=== PATIENT | female | born 1995 | race Caucasian/White ===

== ENCOUNTER → 2019-01-15 | Outpatient (CLI) | payer BC ==
--- NOTE | 2019-01-15 11:33 | Diagnostic Imaging Report ---
PROCEDURE: US Gallbladder. TECHNIQUE: Multiple real-time grayscale images were obtained over the right upper quadrant in various projections. INDICATION: Epigastric pain. COMPARISON: There are no prior studies available for comparison. FINDINGS: There is no evidence for cholelithiasis or acute cholecystitis and the common bile duct is not dilated. The liver is homogeneous and not enlarged. Spectral color flow images of the portal vein shows that the vein is patent. The right kidney is unremarkable. The pancreatic tail and aorta were partially obscured by bowel gas. IMPRESSION: 1. There is no evidence for cholelithiasis or acute cholecystitis. 2. If clinical concern regarding an underlying abnormality of the gallbladder persists and further imaging is desired, then a nuclear medicine hepatobiliary scan would be recommended for further study. Dictated by: Dictated on workstation # [id number]
== END ==
LOC: RAD 08:02
PROVIDERS: ATTEND Nurse Practitioner Family
DX: R10.13 Epigastric pain (principal)
CPT/HCPCS: 76705

== ENCOUNTER → 2019-03-04 | Outpatient (CLI) | payer BC ==
[~2019-03-04] MED LIST: CATHETER FLUSH 10 ML SYR IV PRN
--- NOTE | 2019-03-04 12:59 | Diagnostic Imaging Report ---
INDICATION: Right upper quadrant pain. Patient was administered 5.3 mCi technetium 99m Choletec intravenously and imaging over the abdomen was performed. After 1 hour patient ingested one can of ensure and a gallbladder ejection fraction was calculated. There is homogeneous uptake of activity by the liver with excretion of activity into the gallbladder and common duct. There is normal passage of activity into the small bowel. Gallbladder ejection fraction is slightly low at 28%. Normal values are 33% or greater. IMPRESSION: 1. Patent cystic duct and common bile duct. 2. Slightly low gallbladder ejection fraction of 28%. Dictated by: Dictated on workstation # [id number]
== END ==
LOC: CARD 09:48
PROVIDERS: ATTEND Surgery
DX: R10.11 Right upper quadrant pain (principal); R11.0 Nausea
CPT/HCPCS: 78227

== ENCOUNTER → 2019-03-23 | Outpatient (CLI) | payer BC ==
[2019-03-23 13:59] LABS: ALANINE AMINOTRANSFERASE 99 U/L (0-55); ALBUMIN 3.7 GM/DL (3.2-4.5); ALKALINE PHOSPHATASE 92 U/L (40-136); BILIRUBIN,TOTAL 0.4 MG/DL (0.1-1.0); BUN/CREATININE RATIO 9; CALCIUM 9.7 MG/DL (8.5-10.1); CARBON DIOXIDE 23 MMOL/L (21-32); CHLORIDE 102 MMOL/L (98-107); CREATININE SERUM 0.77 MG/DL (0.60-1.30); GFR ESTIMATED > 60; GLUCOSE 110 MG/DL (70-105); LIPASE 17 U/L (8-78); POTASSIUM 3.8 MMOL/L (3.6-5.0); SODIUM 137 MMOL/L (135-145); TOTAL PROTEIN 7.6 GM/DL (6.4-8.2)
[2019-03-23 14:00] LABS: BASOPHILS % (AUTO) 1 % (0-10); EOSINOPHILS % (AUTO) 3 % (0-10); HEMATOCRIT 42 % (35-52); HEMOGLOBIN 13.5 G/DL (11.5-16.0); LYMPHOCYTES # (AUTO) 1.7 X 10^3 (1.0-4.0); LYMPHOCYTES % (AUTO) 39 % (12-44); MEAN CORPUSCULAR HEMOGLOBIN 29 PG (25-34); MEAN CORPUSCULAR HGB CONC 32 G/DL (32-36); MEAN CORPUSCULAR VOLUME 89 FL (80-99); MEAN PLATELET VOLUME 11.1 FL (7.4-10.4); MONOCYTES # (AUTO) 0.2 X 10^3 (0.0-1.0); MONOCYTES % (AUTO) 5 % (0-12); NEUTROPHILS # (AUTO) 2.3 X 10^3 (1.8-7.8); NEUTROPHILS % (AUTO) 52 % (42-75); PLATELET COUNT 128 10^3/uL (130-400); RED CELL DISTRIBUTION WIDTH 14.1 % (10.0-14.5); WHITE BLOOD COUNT 4.3 10^3/uL (4.3-11.0)
[2019-03-23 14:01] LABS: ATYPICAL LYMPHOCYTES 16 %; BAND NEUTROPHILS 14 %; EOSINOPHILS # (AUTO) 0.1 10^3/uL (0.0-0.3); EOSINOPHILS % (MANUAL) 2 %; LYMPHOCYTES % (MANUAL) 25 %; MONOCYTES % (MANUAL) 6 %; NEUTROPHILS % (MANUAL) 37 %; RBC MORPH NORMAL
== END ==
LOC: LAB FS 12:10
PROVIDERS: ATTEND Family Medicine
DX: R10.13 Epigastric pain (principal)
CPT/HCPCS: 36415; 80053; 83690; 85007; 85027

== ENCOUNTER → 2020-03-07 | Outpatient (CLI) | payer BC | LOC: LAB FS 15:35 | PROVIDERS: ATTEND Family Medicine | DX: N92.5 Other specified irregular menstruation (principal) | CPT/HCPCS: 36415; 84702; 84703 ==

== ENCOUNTER → 2020-04-07 | Outpatient (CLI) | payer BC ==
[2020-04-07 13:35] LABS: WHITE BLOOD COUNT 6.8 10^3/uL (4.3-11.0)
== END ==
LOC: LAB FS 12:48
PROVIDERS: ATTEND Family Medicine
DX: O09.91 Supervision of high risk pregnancy, unspecified, first trimester (principal); Z3A.00 Weeks of gestation of pregnancy not specified
CPT/HCPCS: 36415; 85027; 86703; 86762; 86780; 86850; 86900; 86901; 87088; 87340

== ENCOUNTER → 2020-05-08 | Outpatient (CLI) | payer BC | LOC: LAB FS 15:31 | PROVIDERS: ATTEND Family Medicine | DX: Z34.92 Encounter for supervision of normal pregnancy, unspecified, second trimester (principal) | CPT/HCPCS: 36415; 82105; 82677; 84702; 86336 ==

== ENCOUNTER → 2020-06-19 | Outpatient (CLI) | payer BC ==
--- NOTE | 2020-06-19 09:14 | Diagnostic Imaging Report ---
INDICATION: survey TECHNIQUE: Multiple real-time grayscale images were obtained over the gravid uterus. COMPARISON: None FINDINGS: Amniotic fluid index is normal at 17 cm. Fetus is in breech presentation without evidence of placenta previa. cardiac activity is present with a rate 149 bpm. No anomaly is identified on anatomic survey. Cervical length is 4.1 cm. Patient body habitus limits evaluation of mediastinum and facial features of the fetus. Biometrical measurements are as follows: Biparietal 5.03 cm, age 21 weeks 2 days. Head circumference 19.02 cm, age 21 weeks 3 days. Abdominal circumference 15.90 cm, age 21 weeks 1 days. Femur length 3.68 cm, age 21 weeks 5 days. Sonographic estimate age: 21 weeks 3 days. Sonographic estimated date of delivery: 10/27/2020. Estimated Weight: 416 gm (+/- 61 gm). LMP percentile: 55%. heart rate: 149 beats per minute. number: 1 of 1. IMPRESSION: Unremarkable obstetrical ultrasound although mediastinal and facial features are somewhat obscured. Estimated gestational age by biometry is 21 weeks and 3 days with sonographic EDC of 10/27/2020. Dictated by: Dictated on workstation # [id number]
== END ==
LOC: RAD FS 08:07
PROVIDERS: ATTEND Family Medicine
DX: O09.92 Supervision of high risk pregnancy, unspecified, second trimester (principal); Z3A.21 21 weeks gestation of pregnancy
CPT/HCPCS: 76805

== ENCOUNTER → 2020-08-09 | Outpatient (CLI) | payer BC ==
[2020-08-09 16:35] LABS: ALANINE AMINOTRANSFERASE 19 U/L (0-55); ALBUMIN 3.4 GM/DL (3.2-4.5); ALKALINE PHOSPHATASE 89 U/L (40-136); BILIRUBIN,TOTAL 0.3 MG/DL (0.1-1.0); BUN/CREATININE RATIO 12; CALCIUM 8.8 MG/DL (8.5-10.1); CARBON DIOXIDE 20 MMOL/L (21-32); CHLORIDE 105 MMOL/L (98-107); CREATININE SERUM 0.65 MG/DL (0.60-1.30); GFR ESTIMATED > 60; GLUCOSE 126 MG/DL (70-105); POTASSIUM 3.7 MMOL/L (3.6-5.0); SODIUM 139 MMOL/L (135-145); TOTAL PROTEIN 6.3 GM/DL (6.4-8.2)
[2020-08-09 16:50] LABS: HEMATOCRIT 34 % (35-52); HEMOGLOBIN 11.1 G/DL (11.5-16.0); MEAN CORPUSCULAR HEMOGLOBIN 30 PG (25-34); MEAN CORPUSCULAR HGB CONC 33 G/DL (32-36); MEAN CORPUSCULAR VOLUME 93 FL (80-99); MEAN PLATELET VOLUME 10.7 FL (7.4-10.4); NEUTROPHILS % (AUTO) 76 % (42-75); PLATELET COUNT 155 10^3/uL (130-400); WHITE BLOOD COUNT 7.8 10^3/uL (4.3-11.0)
[2020-08-09 16:51] LABS: BAND NEUTROPHILS 4 %; BASOPHILS % (AUTO) 0 % (0-10); EOSINOPHILS % (AUTO) 1 % (0-10); LYMPHOCYTES # (AUTO) 1.5 X 10^3 (1.0-4.0); LYMPHOCYTES % (AUTO) 19 % (12-44); LYMPHOCYTES % (MANUAL) 16 %; MONOCYTES # (AUTO) 0.3 X 10^3 (0.0-1.0); MONOCYTES % (AUTO) 4 % (0-12); MONOCYTES % (MANUAL) 4 %; NEUTROPHILS # (AUTO) 5.9 X 10^3 (1.8-7.8); NEUTROPHILS % (MANUAL) 75 %
[2020-08-09 16:52] LABS: BASOPHILS % (MANUAL) 0 %; EOSINOPHILS % (MANUAL) 1 %
== END ==
LOC: LAB FS 15:39
PROVIDERS: ATTEND Family Medicine
DX: O16.2 Unspecified maternal hypertension, second trimester (principal); Z3A.00 Weeks of gestation of pregnancy not specified
CPT/HCPCS: 36415; 80053; 82570; 82950; 84156; 85007; 85027; 86780

== ENCOUNTER → 2020-08-14 | Outpatient (CLI) | payer BC ==
--- NOTE | 2020-08-14 16:46 | Diagnostic Imaging Report ---
INDICATION: patient with hypertension. TECHNIQUE: Multiple real-time grayscale images were obtained over the gravid uterus. COMPARISON: Prior study of 06/19/2020. FINDINGS: A single live intrauterine fetus is seen measuring 30 weeks 6 days in size with sonographic EDC of 10/17/2020. There is actually about a rgdm-vlf-l-half larger than expected from original dates, but within variation of late . Fetus is in breech presentation at this time. Amniotic fluid index is 21.83 cm. Placenta is posterior with no evidence of previa. Normal cardiac activity is seen on cine clips. Four-chamber heart view appears unremarkable. Maternal adnexa were nonvisualized. Biometrical measurements are as follows: Biparietal 7.75 cm, age 31 weeks 1 days. Head circumference 28.43 cm, age 31 weeks 2 days. Abdominal circumference 25.86 cm, age 30 weeks 1 days. Femur length 5.89 cm, age 30 weeks 6 days. Sonographic estimate age: 30 weeks 6 days. Sonographic estimated date of delivery: 10/17/2020. Estimated Weight: 1575 gm (+/- 230 gm). LMP percentile: 83%. heart rate: NA beats per minute. number: 1 of 1. IMPRESSION: Single live intrauterine fetus measuring 30 weeks 6 days in size as above, this is about 10 days larger than expected from original dates but within variation of late . There was no detectable abnormality. Note that the fetus is in breech presentation at this time. Dictated by: Dictated on workstation # [id number]
== END ==
LOC: RAD FS 15:24
PROVIDERS: ATTEND Family Medicine
DX: O13.3 Gestational [pregnancy-induced] hypertension without significant proteinuria, third trimester (principal); Z3A.30 30 weeks gestation of pregnancy
CPT/HCPCS: 76805

== ENCOUNTER → 2020-09-21 | Outpatient (CLI) | payer BC ==
--- NOTE | 2020-09-21 11:46 | Diagnostic Imaging Report ---
INDICATION: High risk , followup TECHNIQUE: Multiple real-time grayscale images were obtained over the gravid uterus. COMPARISON: 08/14/2020, 06/19/2020 FINDINGS: Single viable in cephalic presentation. Placenta posterior without previa. Normal amount of amniotic fluid, index at 12.36 cm. anatomic assessment not performed. Maternal adnexa not visualized. Biometrical measurements are as follows: Biparietal 8.97 cm, age 36 weeks 3 days. Head circumference 33.37 cm, age 38 weeks 1 days. Abdominal circumference 31.36 cm, age 35 weeks 3 days. Femur length 7.22 cm, age 37 weeks 0 days. Sonographic estimate age: 36 weeks 3 days. Sonographic estimated date of delivery: 10/13/2020. Estimated Weight: 2862 gm (+/- 418 gm). LMP percentile: 87%. heart rate: 143 beats per minute. number: 1 of 1. IMPRESSION: 1. Single viable intrauterine in the cephalic presentation. Sonographic estimated age 36 weeks 6 days for estimated date of delivery 10/13/2020. This is advanced approximately 2 weeks from initial dating. Estimated weight at the 87th percentile. Dictated by: Dictated on workstation # [id number]
== END ==
LOC: RAD FS 10:39
PROVIDERS: ATTEND Family Medicine
DX: O09.93 Supervision of high risk pregnancy, unspecified, third trimester (principal); Z3A.36 36 weeks gestation of pregnancy
CPT/HCPCS: 76805

== ENCOUNTER 2020-10-26 18:57 | Inpatient (IN) | payer BC ==
[~2020-10-26] VITALS: Ht 162.6 cm; Wt 141.2 kg
[2020-10-26 19:26] VITALS: BP 138/65
[2020-10-26] MEDS ORDERED: NS IV 1000 ML 1,000 ML ONE (19:55)
[2020-10-26 20:00] VITALS: BP 138/65
[2020-10-26 20:30] LABS: BASOPHILS % (AUTO) 0 % (0-10); EOSINOPHILS % (AUTO) 1 % (0-10); HEMATOCRIT 33 % (35-52); HEMOGLOBIN 10.6 g/dL (11.5-16.0); LYMPHOCYTES # (AUTO) 1.4 10^3/uL (1.0-4.0); LYMPHOCYTES % (AUTO) 18 % (12-44); MEAN CORPUSCULAR HEMOGLOBIN 28 pg (25-34); MEAN CORPUSCULAR HGB CONC 32 g/dL (32-36); MEAN CORPUSCULAR VOLUME 88 fL (80-99); MEAN PLATELET VOLUME 11.4 fL (9.0-12.2); MONOCYTES # (AUTO) 0.4 10^3/uL (0.0-1.0); MONOCYTES % (AUTO) 5 % (0-12); NEUTROPHILS # (AUTO) 5.6 10^3/uL (1.8-7.8); NEUTROPHILS % (AUTO) 76 % (42-75); PLATELET COUNT 165 10^3/uL (130-400); WHITE BLOOD COUNT 7.5 10^3/uL (4.3-11.0)
[2020-10-26 20:34] LABS: BILIRUBIN,URINE NEGATIVE (NEGATIVE); CLARITY,URINE CLEAR; COLOR,URINE YELLOW; GLUCOSE, URINE (UA) NEGATIVE (NEGATIVE); KETONES,URINE NEGATIVE (NEGATIVE); LEUKOCYTE ESTERASE ,URINE NEGATIVE (NEGATIVE); NITRITE,URINE NEGATIVE (NEGATIVE); PROTEIN,URINE NEGATIVE (NEGATIVE)
[2020-10-26 20:52] LABS: AMORPHOUS SEDIMENT,UR FEW AMOR URATES /LPF; BACTERIA,URINE FEW /HPF
[2020-10-26] MEDS ORDERED: CLINDAMYCIN 900 MG/50 ML IVPB 50 ML IV ONE (21:21)
[2020-10-26] MEDS: D5 LR IV SOLUTION 1,000 ML IV SCH (21:29)
[2020-10-26] MEDS: CLINDAMYCIN 900 MG/50 ML IVPB 50 ML IV SCH (21:30)
[2020-10-26] MEDS ORDERED: LABE100T6 PO (21:56)
[2020-10-26] MEDS ORDERED: PANT40TA2 PO (21:56)
[2020-10-26] MEDS ORDERED: PREN-102 PO (21:57)
[2020-10-26 22:00] VITALS: BP 135/79
[2020-10-26] MEDS ORDERED: CATHETER FLUSH 10 ML SYR IV SCH (22:00)
[2020-10-26 23:00] VITALS: BP 145/85
[2020-10-27] VITALS (35 sets, daily range): BP systolic 103–175; BP diastolic 49–101
[2020-10-27] MEDS ORDERED: LABETALOL HCL 20 MG/4 ML VIAL ONE (03:39)
[2020-10-27] MEDS ORDERED: LABETALOL 200 MG (NORMODYNE) TAB PO ONE (03:43)
[2020-10-27] MEDS ORDERED: NS IV 1000 ML 1,000 ML IV ONE (03:45)
[2020-10-27] MEDS ORDERED: LABETALOL HCL 20 MG/4 ML VIAL IV ONE (03:45)
[2020-10-27] MEDS: LABETALOL 200 MG (NORMODYNE) TAB PO SCH ×3 (03:50→22:54)
[2020-10-27] MEDS: CLINDAMYCIN 900 MG/50 ML IVPB 50 ML IV SCH (05:40)
[2020-10-27] MEDS: D5 LR IV SOLUTION 1,000 ML IV SCH (06:04)
[2020-10-27] MEDS ORDERED: fentaNYL 2 mcg/ml BUPIVA 0.125 100 ML ONE (08:15)
[2020-10-27] MEDS ORDERED: BUPIVACAINE 0.25% 30 ML (SENSORCAINE) VIAL ONE (08:52)
[2020-10-27] MEDS ORDERED: LIDOCAINE PF 2% 5 ML (XYLOCAINE) VIAL ONE (08:52)
[2020-10-27] MEDS ORDERED: fentaNYL INJ 100 MCG/2 ML AMP ONE (08:52)
[2020-10-27] MEDS ORDERED: NALOXONE 0.4 MG/ML 1 ML (NARCAN) VIAL IV PRN (09:00)
[2020-10-27] MEDS ORDERED: LACTATED RINGERS 1,000 ML IV ONE (09:00)
[2020-10-27] MEDS ORDERED: fentaNYL 2 mcg/ml BUPIVA 0.125 100 ML IV SCH (09:00)
[2020-10-27] MEDS ORDERED: CATHETER FLUSH 10 ML SYR IV PRN (09:00)
--- NOTE | 2020-10-27 09:04 | History & Physical-OB ---
OB - Chief Complaint & HPI Date/Time Date of Admission: Date of Admission: Oct 26, 2020 at 6:57 pm Date seen by a Provider: Oct 27, 2020 Time Seen by a Provider: 08:58 Chief Complaint/History OB-Reason for Admission/Chief: Induction of Labor Hx : 2 Hx Para: 1 Expected Date of Delivery: Oct 29, 2020 Gestational Age in Weeks: 39 Gestational Age in Days: 4 Indication for induction: other (GHTN, 39 weeks) Admission Nurse Assessment Rev: Yes Allergies and Home Medications Allergies Coded Allergies: Penicillins (Verified Allergy, Severe, 10/26/20) azithromycin (Verified Allergy, Severe, 10/26/20) Home Medications Labetalol HCl 100 Mg Tablet, 100 MG PO BID, (Reported) Last Action: New Order Pantoprazole Sodium 40 Mg Tablet.dr, 40 MG PO DAILY, (Reported) Last Action: New Order Vits #93/Iron Fum/FA 1 Each Tablet, 1 EACH PO DAILY, (Reported) Last Action: New Order Patient Home Medication List Home Medication List Reviewed: Yes OB - History Hx of Present Care: Yes Ultrasounds: Normal mid trimester US Obstetrical Complications: Gestational Hypertension Medical Complications: None Patient Past Medical History BMI 53 OB - Admission Exam Physical Exam Vitals: Vital Signs 10/26/20 10/27/20 10/27/20 10/27/20 19:26 03:00 06:00 07:00 Temp 36.5 Pulse 90 Resp 18 B/P (MAP) 135/80 (98) Pulse Ox 97 O2 Delivery Room Air HEENT: NCAT Heart: Rhythm Normal Lungs: Clear Abdomen: Gravid Extremities: Normal Reflexes: Normal Cervical Dilatation: 1cm Effacement: 75% Station: -1 Membranes: Intact Heart Rate: 130's Accelerations: Accelerations Present Decelerations: No Decelerations Short Term Variability: Present Manager Athletics Variability: Average (6-25) Intensity: Mild [place] Scoring Tool (Modified) Dilation (cm): 1-2cm (1) Effacement (%): 51-79% (2) Descent/Station: -1,0 (2) Cervix Consistency: Soft (2) Cervix Position: Anterior (2) Midd[place] Score: 8 Labs Laboratory Tests Test 10/26/20 19:10 10/26/20 20:20 Range/Units Urine Color YELLOW Urine Clarity CLEAR Urine pH 6.0 5-9 Urine Specific [place] 1.010 L 1.016-1.022 Urine Protein NEGATIVE NEGATIVE Urine Glucose (UA) NEGATIVE NEGATIVE Urine Ketones NEGATIVE NEGATIVE Urine Nitrite NEGATIVE NEGATIVE Urine Bilirubin NEGATIVE NEGATIVE Urine Urobilinogen 1.0 < = 1.0 MG/DL Urine Leukocyte Esterase NEGATIVE NEGATIVE Urine RBC (Auto) NEGATIVE NEGATIVE Urine RBC NONE /HPF Urine WBC 2-5 /HPF Urine Crystals PRESENT H /LPF Urine Amorphous Sediment FEW CONNIE URATES H /LPF Urine Bacteria FEW H /HPF Urine Casts NONE /LPF Urine Mucus NEGATIVE /LPF Urine Culture Indicated YES White Blood Count 7.5 4.3-11.0 10^3/uL Red Blood Count 3.74 L 3.80-5.11 10^6/uL Hemoglobin 10.6 L 11.5-16.0 g/dL Hematocrit 33 L 35-52 % Mean Corpuscular Volume 88 80-99 fL Mean Corpuscular Hemoglobin 28 25-34 pg Mean Corpuscular Hemoglobin Concent 32 32-36 g/dL Red Cell Distribution Width 14.6 H 10.0-14.5 % Platelet Count 165 130-400 10^3/uL Mean Platelet Volume 11.4 9.0-12.2 fL Immature Granulocyte % (Auto) 1 % Neutrophils (%) (Auto) 76 H 42-75 % Lymphocytes (%) (Auto) 18 12-44 % Monocytes (%) (Auto) 5 0-12 % Eosinophils (%) (Auto) 1 0-10 % Basophils (%) (Auto) 0 0-10 % Neutrophils # (Auto) 5.6 1.8-7.8 10^3/uL Lymphocytes # (Auto) 1.4 1.0-4.0 10^3/uL Monocytes # (Auto) 0.4 0.0-1.0 10^3/uL Eosinophils # (Auto) 0.0 0.0-0.3 10^3/uL Basophils # (Auto) 0.0 0.0-0.1 10^3/uL Immature Granulocyte # (Auto) 0.0 0.0-0.1 10^3/uL OB - Assessment/Plan/Diagnosis Assessment Assessment: induction of labor Admission Dx 25 yo @ 39.5 Induction of labor GHTN GBS unknown Admission Status: Inpatient Order (span 2 midnights) Reason for Inpatient Admission: Induction of labor at 39 weeks Plan Induction Method: per Misoprostol Protocol Other Plan Clindamycin started overnight due to PCN allergy. Will AROM and start pitocin in AM. NHUNG GRAY DO Oct 27, 2020 9:04 am
[2020-10-27] MEDS ORDERED: TERBUTALINE INJ 1 MG/ML (BRETHINE) AMP ONE (10:14)
[2020-10-27] MEDS ORDERED: TERBUTALINE INJ 1 MG/ML (BRETHINE) AMP SC ONE (10:16)
[2020-10-27] MEDS ORDERED: LIDOCAINE/EPI 2% 1:200,00 (XYLOCAINE) 20 ML VIAL ONE (10:23)
[2020-10-27] MEDS ORDERED: OXYTOCIN PRE-MIX DRIP 500 ML IV ONE (10:28)
[2020-10-27] MEDS ORDERED: LIDOCAINE/EPI 2% 1:200,00 (XYLOCAINE) 10 ML VIAL INJ ONE (10:30)
[2020-10-27] MEDS: OXYTOCIN PRE-MIX DRIP 500 ML IV SCH ×2 (10:41→11:14)
--- NOTE | 2020-10-27 10:56 | OB Labor & Delivery Record ---
L&D History Date of Service Date of Service: Oct 27, 2020 History Expected Date of Delivery: Oct 29, 2020 Gestational Age in Weeks: 39 Hx : 2 Hx Para: 1 Complications Events: Induced HTN Operative Indications (Cesarea: N/A-Vaginal Delivery Intrapartal Events: None L&D Stage1 Stage One Onset of Labor - Date: Oct 27, 2020 Monitors and Tracing Monitor Mode: External Heart Rate: 130 Monitor Accelerations: Uniform Monitor Decelerations: Variable Longterm Variability: Average (6-10) Short Term Variability: Present Presentation: Vertex Vital Signs VS - Last 72 Hours, by Label 10/26/20 10/26/20 10/26/20 10/26/20 19:26 20:00 21:00 22:00 Temp 36.7 36.7 Pulse 106 106 76 Resp 18 18 18 18 B/P (MAP) 138/65 (89) 135/79 (97) Pulse Ox 97 O2 Delivery Room Air Room Air Room Air Room Air 10/26/20 10/27/20 10/27/20 10/27/20 23:00 00:00 01:00 02:00 Temp 35.8 Pulse 83 71 89 82 Resp 18 18 18 18 B/P (MAP) 145/85 (105) 130/78 (95) 142/75 (97) 158/82 (107) O2 Delivery Room Air Room Air Room Air Room Air 10/27/20 10/27/20 10/27/20 10/27/20 03:00 03:10 03:20 04:00 Temp 36.5 Pulse 76 83 78 88 Resp 18 18 18 18 B/P (MAP) 165/91 (115) 175/101 (125) 173/99 (123) 142/99 (113) O2 Delivery Room Air Room Air 10/27/20 10/27/20 10/27/20 05:00 06:00 07:00 Pulse 75 90 Resp 18 18 18 B/P (MAP) 146/67 (93) 135/80 (98) O2 Delivery Room Air Room Air Room Air Signs of Distress by FHT Signs of Distress recurrent heart variable decelerations to the 70s, with abrupt return to baseline, after epidural placed until complete. Rupture of Membranes Spontaneous Ruture of Membrane: Yes Amniotic Membrane Fluid Desc.: Clear Progress/Notes Patient admitted last night for IOL. She was given misoprostol overnight for cervical ripening, this AM SROM occurred, FSE placed when I arrived she was 4 cm. She received an epidural and progressed rapidly to complete and + 1 L&D Stage2 Stage Two Stage II Date: Oct 27, 2020 Monitors and Tracing Monitor Mode: Internal Heart Rate: 130 Monitor Accelerations: None Monitor Decelerations: Variable Longterm Variability: Average (6-10) Short Term Variability: Present Position: Right Occiput Anterior Presentation: Vertex Signs of Distress by FHT Signs of Distress Due to distress with recurrent decels into the 50s, delivery was expedited using low vacuum extraction. She was encouraged to push, and once station approached +2, kiwi suction placed on midsagital suture line on flexion point. Suction appled to 40mmHg using hand piece. With gentle extension of the head, the head was delivered and nuchal cord reduced x 1. Vacuum released, remainder of the delivered without difficulty. Cord Descript/Complications Cord Vessel Description: 3 Vessels Complications cord pH drawn Delivery Type Delivery Method: Low Vacuum Extraction Anterior Shoulder: Right Episiotomy/Perineal Laceration Laceraction(s)/Extensions: Yes Episiotomy Description: Perineal Extension/lac, Vaginal Extension/lac, 2nd degree Degree (describe repair) 2nd degree vaginal/perineal laceration repaired using 3-0 vicryl in usual fashion. Condition of Delivery 1 minute Comment: 7 5 minute Comment: 9 Notes Live male weight pending Condition of Infant Condition of Infant: Living Exam: No Observed Abnormalities Resuscitation Resuscitation: N/A - Spontaneous Resp L&D Stage3 Stage Three Stage III Date: Oct 27, 2020 Pictocin Pitocin Administration Comment: 30 mu wide open after delivery of placenta Placenta Delivery Placenta Delivery: Spontaneous Delivery Summary Summary Estimated blood loss (mL): 300 Attending at delivery: Nhung Gray DO Condition of Delivery Examined: Cervix Examined, Uterus Explored Post Hemorrhage: No Condition of Mother stable Condition of Infant (s) stable NHUNG GRAY DO Oct 27, 2020 10:56
[2020-10-27] MEDS ORDERED: MEASLES,MUMPS,RUBELLA 1 EA INJ SQ ONE (11:00)
[2020-10-27] MEDS ORDERED: WITCH HAZEL(TUCKS) 40 EA JAR TOP PRN (11:00)
[2020-10-27] MEDS ORDERED: HYDROcodone/APAP 5 MG/325 MG (LORTAB) TAB PO PRN (11:00)
[2020-10-27] MEDS ORDERED: TETANUS,DIPTH,PERTUSS P/F (BOOSTRIX) 0.5 ML VIAL IM ONE (11:00)
[2020-10-27] MEDS ORDERED: BENZOCAINE/MENTHOL (DERMOPLAST) 56 ML CAN TP PRN (11:00)
[2020-10-27] MEDS ORDERED: DIBUCAINE 1% OINTMENT 30 GM TUBE TOP PRN (11:00)
[2020-10-27] MEDS: IBUPROFEN 600 MG (MOTRIN) TAB PO SCH ×2 (13:31→21:30)
[2020-10-27] MEDS ORDERED: CATHETER FLUSH 10 ML SYR IV SCH (14:00)
[2020-10-27] MEDS: DOCUSATE SODIUM 100 MG (COLACE) CAP PO SCH (21:30)
[2020-10-28] MEDS: IBUPROFEN 600 MG (MOTRIN) TAB PO SCH ×5 (03:28→14:44)
[2020-10-28 03:29] VITALS: BP 100/51
[2020-10-28 06:14] LABS: HEMOGLOBIN 9.6 g/dL (11.5-16.0)
[2020-10-28 06:16] LABS: BASOPHILS % (AUTO) 0 % (0-10); EOSINOPHILS # (AUTO) 0.1 10^3/uL (0.0-0.3); EOSINOPHILS % (AUTO) 1 % (0-10); HEMATOCRIT 30 % (35-52); LYMPHOCYTES # (AUTO) 1.6 10^3/uL (1.0-4.0); LYMPHOCYTES % (AUTO) 20 % (12-44); MEAN CORPUSCULAR HEMOGLOBIN 28 pg (25-34); MEAN CORPUSCULAR HGB CONC 32 g/dL (32-36); MEAN CORPUSCULAR VOLUME 89 fL (80-99); MONOCYTES # (AUTO) 0.5 10^3/uL (0.0-1.0); MONOCYTES % (AUTO) 6 % (0-12); NEUTROPHILS % (AUTO) 73 % (42-75); PLATELET COUNT 129 10^3/uL (130-400); WHITE BLOOD COUNT 8.2 10^3/uL (4.3-11.0)
[2020-10-28] MEDS ORDERED: PRENATAL VITAMIN 1 EA TAB PO SCH (07:00)
--- NOTE | 2020-10-28 08:59 | Postpartum Progress Note ---
Note Note Day # 1 Subjective: Patient is without complaints. Ambulating, voiding. Tolerating a regular diet without nausea or vomiting. Normal lochia. Pain is well controlled with oral pain medications. Objective: Physical Exam: General - Alert and oriented, no apparent distress Abdomen - Soft, appropriately tender to palpation, non-distended, fundus firm at umbilicus Extremities - no edema, negative Ck's bilaterally Assessment: PPD 1 VAVD Acute blood loss anemia Plan: Routine care. Encourage breast feeding. Encourage ambulation. Ferrous sulfate supplementation. Plan for discharge today Vitals - Labs Vital Signs - I&O Vital Signs Date Time Temp Pulse Resp B/P (MAP) Pulse Ox O2 Delivery O2 Flow Rate FiO2 10/28/20 03:29 37.0 78 18 100/51 (67) 98 Room Air 10/27/20 21:32 36.8 86 18 107/58 (74) 97 Room Air 10/27/20 17:30 36.8 79 18 105/61 (76) Room Air 10/27/20 12:46 36.7 88 16 103/49 (67) 98 Room Air 10/27/20 12:16 81 108/55 (72) Room Air 10/27/20 11:57 73 119/69 (86) Room Air 10/27/20 11:33 77 116/55 (75) Room Air 10/27/20 11:00 92 119/56 (77) Room Air 10/27/20 10:45 37.0 93 109/53 (71) Room Air 10/27/20 10:37 94 108/51 (70) Room Air 10/27/20 10:20 89 111/57 (75) 100 Room Air 10/27/20 10:15 81 116/58 (77) 100 Room Air 10/27/20 10:10 77 108/56 (73) 100 Room Air 10/27/20 10:04 82 111/55 (73) 100 Room Air 10/27/20 10:00 89 107/54 (71) 100 Room Air 10/27/20 09:57 76 110/55 (73) 100 Room Air 10/27/20 09:53 97 122/58 (79) 100 Room Air 10/27/20 09:49 86 115/58 (77) 100 Room Air 10/27/20 09:45 90 124/69 (87) 100 Room Air 10/27/20 09:43 85 122/64 (83) 100 Room Air 10/27/20 09:40 92 110/55 (73) Room Air 10/27/20 09:38 93 103/53 (70) 98 Room Air 10/27/20 09:35 99 125/60 (81) 98 Room Air 10/27/20 09:30 92 119/64 (82) 100 Room Air 10/27/20 09:20 37.0 98 147/81 (103) Room Air I & O 10/28/20 07:00 Intake Total 2600 ml Balance 2600 ml Labs Laboratory Tests 10/28/20 05:36: White Blood Count 8.2, Red Blood Count 3.41L, Hemoglobin 9.6L, Hematocrit 30L, Mean Corpuscular Volume 89, Mean Corpuscular Hemoglobin 28, Mean Corpuscular H emoglobin Concent 32, Red Cell Distribution Width 14.6H, Platelet Count 129L, Mean Platelet Volume 12.0, Immature Granulocyte % (Auto) 1, Neutrophils (%) (Auto) 73, Lymphocytes (%) (Auto) 20, Monocytes (%) (Auto) 6, Eosinophils (%) (Auto) 1, Basophils (%) (Auto) 0, Neutrophils # (Auto) 6.0, Lymphocytes # (Auto) 1.6, Monocytes # (Auto) 0.5, Eosinophils # (Auto) 0.1, Basophils # (Auto) 0.0, Immature Granulocyte # (Auto) 0.1, Percent Immature Platelet Fraction 8.1H Microbiology 10/26/20 Urine Culture - Final, Complete NO GROWTH NHUNG GRAY DO Oct 28, 2020 08:59
[2020-10-28 09:00] VITALS: BP 134/77
[2020-10-28] MEDS ORDERED: FERROUS SULF 325 MG (IRON) TAB PO SCH (09:00)
[2020-10-28] MEDS: LABETALOL 200 MG (NORMODYNE) TAB PO SCH (09:10)
[2020-10-28] MEDS: DOCUSATE SODIUM 100 MG (COLACE) CAP PO SCH (09:10)
[2020-10-28] MEDS ORDERED: IBUP-844 PO (09:12)
[2020-10-28] MEDS ORDERED: BENZ78AE5 TP (09:12)
[2020-10-28] MEDS ORDERED: ACHD5005 PO (09:12)
[2020-10-28] MEDS ORDERED: DIBU30OI TOP (09:12)
[2020-10-28] MEDS ORDERED: DCS100C PO (09:12)
[2020-10-28] MEDS ORDERED: FERR325T24 PO (09:12)
--- NOTE | 2020-10-28 09:16 | Discharge Inst-Women's Service ---
Discharge Inst-Women's Serv Depart Medication/Instructions New, Converted or Re-Newed RX: RX on Chart Final Diagnosis PPD 1 NVD Problems Reviewed?: Yes Consults/Follow Up Additional Follow Up: Yes Orders/Referrals Dr. Gray or Dr. Urbina in 6 weeks Activity Activity: Activity as Tolerated Driving Instructions: No Driving for 1 Week NO SMOKING: NO SMOKING Nothing Inside Vagina: No Douching, No [place], No Tampons Diet Discharge Diet: No Restrictions Symptoms to Report to : Bleeding Excessive, Pain Increased, Fever Over 101 Degrees F, Vaginal Bleeding Increase, Questions/Concerns For Any Problems or Questions: Contact Your Physician NHUNG GRAY DO Oct 28, 2020 09:16
[2020-10-28] MEDS ORDERED: MEASLES,MUMPS,RUBELLA 1 EA INJ ONE (14:10)
[2020-10-28 14:30] VITALS: BP 133/66
--- NOTE | 2020-10-28 15:00 | Anesthesia-Regional Post-Op ---
Regional Patient Condition Mental Status: Alert, Oriented x3 Circulation: Same as Pre-Op Headache: Absent Sensation: Full Recovery Motor Block: Absent Post Op Complications Complications None Follow Up Care/Instructions Patient Instructions None needed. Anesthesia/Patient Condition Patient is doing well, no complaints, stable vital signs, no apparent adverse anesthesia problems. No complications reported per nursing. DAVION BAKER CRNA Oct 28, 2020 15:00
[2020-10-28 18:00] VITALS: BP 133/66
== END 2020-10-28 18:00 | disposition home or self-care (01) | DRG 806 ==
LOC: LDRP 18:57
PROVIDERS: ADMIT Obstetrics & Gynecology; ATTEND Obstetrics & Gynecology
PROC: 10E0XZZ Delivery of Products of Conception, External Approach (ICD-10-PCS; principal; 2020-10-27)
PROC: 0KQM0ZZ Repair Perineum Muscle, Open Approach (ICD-10-PCS; 2020-10-27)
DX: O13.4 Gestational [pregnancy-induced] hypertension without significant proteinuria, complicating childbirth (principal); D62 Acute posthemorrhagic anemia; Z37.0 Single live birth; Z3A.39 39 weeks gestation of pregnancy; O70.1 Second degree perineal laceration during delivery; O90.81 Anemia of the puerperium
CPT/HCPCS: 36415; 81000; 85025; 86850; 86900; 86901; 87088; 90707

== ENCOUNTER → 2022-01-29 | Outpatient (CLI) | payer BC ==
[~2022-01-29] MED LIST changes: +ACHD5005 PO; +BENZ78AE5 TP; -CATHETER FLUSH 10 ML SYR IV PRN; +DIBU30OI TOP; +DOCU-239 PO; +FERR325T24 PO; +IBUP-844 PO; +LABE100T9 PO; +PANT40TA2 PO; +PREN-102 PO
== END ==
LOC: LABNPT 14:44
PROVIDERS: ATTEND Family Medicine
DX: L98.9 Disorder of the skin and subcutaneous tissue, unspecified (principal)
CPT/HCPCS: 87254